=== PATIENT | male | born 1990 | race Caucasian/White ===

== ENCOUNTER 2022-06-04 11:34 | Inpatient (IN) | payer MEDICAID, OTHER ==
[~2022-06-04] VITALS: Ht 175.3 cm; Wt 64.4 kg
[~2022-06-04 11:34] MED LIST: NOCURR
[2022-06-04] MEDS ORDERED: MIDAZOLAM HCL 2 MG/2 ML VIAL ONE (11:48)
[2022-06-04] MEDS ORDERED: SODIUM CHLORIDE 0.9% 500 ML IV ONE (11:53)
[2022-06-04] MEDS ORDERED: MIDAZOLAM HCL 2 MG/2 ML VIAL IVP ONE (12:00)
[2022-06-04] MEDS ORDERED: PERTUSS(ACELL),DIPH,TET VAC/PF 0.5 ML SYRINGE IM. ONE (12:30)
[2022-06-04] MEDS ORDERED: LIDOCAINE 1% 10 ML VIAL SQ ONE (12:30)
[2022-06-04] MEDS ORDERED: LevETIRAcetam 1,000 MG in DEXTROSE 5%-WATER 100 ML IV ONE (12:30)
[2022-06-04] MEDS ORDERED: PROPOFOL 1000 MG/ISO-OSM 100 ML ONE (12:36)
[2022-06-04 12:38] LABS: APPEARANCE,URINE CLEAR (CLEAR); BILIRUBIN,URINE NEGATIVE (NEGATIVE); GLUCOSE, URINE (UA) 70-100 mg/dL (NEGATIVE); KETONES,URINE TRACE mg/dL (NEGATIVE); LEUKOCYTE ESTERASE ,URINE NEGATIVE (NEGATIVE); NITRATE,URINE NEGATIVE (NEGATIVE); OCCULT BLOOD,URINE MODERATE (NEGATIVE); PROTEIN,URINE 30-70 mg/dL (NEGATIVE); UROBILINOGEN,URINE <=1.0 mg/dL (<=1.0)
[2022-06-04] MEDS: PROPOFOL 1000 MG/ISO-OSM 100 ML IV PRN ×3 (12:44→20:16)
[2022-06-04 12:46] LABS: HEMATOCRIT 48.4 % (41-53); HEMOGLOBIN 15.2 g/dL (13.5-17.5); MEAN CORPUSCULAR HEMOGLOBIN 30.4 pg (26.0-34.0); MEAN CORPUSCULAR HGB CONC 31.4 G/dL (31.0-37.0); MEAN CORPUSCULAR VOLUME 97 fL (80-100); PLATELET COUNT (AUTO) 253 K/uL (150-450); RED CELL DISTRIBUTION WIDTH 14.8 % (11.5-14.5)
[2022-06-04 12:50] LABS: ANION GAP 17 mmol/L (8-16); CALCIUM, TOTAL 7.4 mg/dL (8.8-10.5); CARBON DIOXIDE 15 mmol/L (22-29); CHLORIDE 108 mmol/L (98-107); CREATININE 1.09 mg/dL (0.60-1.30); GLOMERULAR FILTR. RATE CALC > 60 mL/min (>60); GLUCOSE,RANDOM 119 mg/dL (70-110); POTASSIUM 4.9 mmol/L (3.5-5.1); SODIUM SERUM 140 mmol/L (136-145); UREA NITROGEN, BLOOD 11 mg/dL (7-18)
[2022-06-04 12:50] LABS: AMPHET/METH SCREEN,URINE NEGATIVE (NEGATIVE); BARBITURATE SCREEN, URINE NEGATIVE (NEGATIVE); BENZODIAZEPINES SCREEN,URINE POSITIVE (NEGATIVE); CANNABINOID SCREEN,URINE POSITIVE (NEGATIVE); COCAINE SCREEN,URINE NEGATIVE (NEGATIVE); METHADONE SCREEN, URINE NEGATIVE (NEGATIVE); OPIATE SCREEN,URINE NEGATIVE (NEGATIVE); PHENCYCLIDINE SCREEN,URINE NEGATIVE (NEGATIVE)
[2022-06-04] MEDS ORDERED: LORazepam 2 MG/ML VIAL ONE (12:51)
[2022-06-04 12:54] LABS: PROTHROMBIN TIME 11.1 SEC (9.4-11.6)
[2022-06-04 13:00] LABS: AMMONIA 21 umol/L (11-32)
[2022-06-04] MEDS ORDERED: LORazepam 2 MG/ML VIAL IVP ONE (13:00)
[2022-06-04 13:02] LABS: ABG BASE EXCESS -14.7 mmol/L (-2.0-3.0); ABG CARBOXYHEMOGLOBIN 0.3 % (0.0-1.5); ABG HCO3 13.8 mmol/L (22.0-26.0); ABG METHEMOGLOBIN 0.6 % (0.0-1.5); ABG OXYGEN SATURATION 99.7 % (95.0-98.0); ABG OXYHEMOGLOBIN 98.8 % (94.0-100.0); ABG PCO2 46 mmHg (35-45); ABG TOTAL HEMOGLOBIN 16.3 G/dL (12.0-18.0); PO2, ARTERIAL BG 520.3 mmHg (92.0-100.0); SOURCE, BLOOD GAS ARTERIAL
[2022-06-04 13:03] LABS: ABG A-A DIFF O2 147.9 mmHg (10-20.0); ABG PH 7.124 (7.350-7.450); O2 DEVICE,BLOOD GAS VENTILATOR (ROOM AIR); SITE, BLOOD GAS ARTERIAL LINE; VT, ABG 450 ml
[2022-06-04 13:03] LABS: LACTIC ACID 4.2 mmol/L (0.4-2.0)
[2022-06-04 13:04] LABS: PEEP,BG 5 cm H2O; SPONTANEOUS VT, BG 460 ml
[2022-06-04 13:12] LABS: ACETAMINOPHEN 8 mcg/mL (10-30)
[2022-06-04 13:20] LABS: BAND NEUTROPHILS % (MANUAL) 10 % (0-5); LYMPHOCYTES % (MANUAL) 3 % (22-44); MONOCYTES % (MANUAL) 4 % (2-9); SEGMENTED NEUTROPHILS % 83 % (40-70)
[2022-06-04 13:22] LABS: BACTERIA,URINE Rare /HPF (None Seen); RBC,URINE 0-2 /HPF (0-2); WBC,URINE 0-2 /HPF (0-5)
[2022-06-04 13:22] LABS: ALANINE AMINOTRANSFERASE 20 U/L (12-78); ALBUMIN 4.1 g/dL (3.4-5.0); ALKALINE PHOSPHATASE 108 U/L (46-116); ASPARTATE AMINOTRANSFERASE 24 U/L (15-37); BILIRUBIN,TOTAL 0.2 mg/dL (0.1-1.0); CREATINE KINASE, TOTAL ONLY 309 U/L (39-308); TOTAL PROTEIN, SERUM 8.3 g/dL (6.4-8.2)
[2022-06-04 13:25] LABS: SALICYLATE 0.3 mg/dL (2.8-20.0)
[2022-06-04] MEDS ORDERED: PIPERACILLIN/TAZO 3.375 GM/D5W 50 ML IV ONE (13:30)
[2022-06-04] MEDS ORDERED: SODIUM CHLORIDE 0.9% 2,000 ML IV ONE (13:30)
[2022-06-04] MEDS: MIDAZOLAM HCL 100 MG in SODIUM CHLORIDE 0.9% 180 ML IV PRN (13:31)
[2022-06-04] MEDS ORDERED: DEXTROSE 5% IV ONE (13:45)
[2022-06-04] MEDS ORDERED: WATER IV ONE (13:45)
[2022-06-04] MEDS ORDERED: LEVETIRACETAM IV ONE (13:45)
[2022-06-04] MEDS ORDERED: LevETIRAcetam 3,000 MG in DEXTROSE 5%-WATER 250 ML IV ONE (13:45)
[2022-06-04 15:46] LABS: COVID AG,FIA SOURCE NASAL SWAB
[2022-06-04] MEDS ORDERED: ZOLPIDEM TARTRATE 5 MG TABLET PO PRN (19:45)
[2022-06-04] MEDS ORDERED: ACETAMINOPHEN 325 MG TABLET PO PRN (19:45)
[2022-06-04] MEDS ORDERED: ONDANSETRON HCL 4 MG/2 ML VIAL IVP PRN (19:45)
[2022-06-04] MEDS ORDERED: MORPHINE SULFATE 2 MG/ML SYRINGE IVP PRN (19:45)
[2022-06-04] MEDS ORDERED: BISACODYL 10 MG RECTAL RECTAL SUPPOSITORY PR PRN (19:45)
[2022-06-04] MEDS ORDERED: IPRATROPIUM BROMIDE 0.5 MG/2.5 ML NEB SOLUTION NEB PRN (19:45)
[2022-06-04] MEDS ORDERED: ALBUTEROL SULFATE 2.5 MG/0.5 ML NEB SOLUTION NEB PRN (19:45)
[2022-06-04] MEDS ORDERED: MAGNESIUM HYDROXIDE SUSPENSION 30 ML UDCUP PO PRN (19:45)
[2022-06-04 20:00] VITALS: BP 100/66
[2022-06-04 20:28] LABS: BASOPHILS % (AUTO) 0.5 % (0.0-2.0); EOSINOPHILS % (AUTO) 0.2 % (1.0-6.0); HEMATOCRIT 45.7 % (41-53); HEMOGLOBIN 14.7 g/dL (13.5-17.5); LYMPHOCYTES # (AUTO) 1.7 K/uL (1.0-4.8); LYMPHOCYTES % (AUTO) 7.6 % (22.0-44.0); MEAN CORPUSCULAR HEMOGLOBIN 30.4 pg (26.0-34.0); MEAN CORPUSCULAR HGB CONC 32.1 G/dL (31.0-37.0); MEAN CORPUSCULAR VOLUME 95 fL (80-100); MONOCYTES # (AUTO) 2.1 K/uL (0.1-1.0); MONOCYTES % (AUTO) 9.6 % (2.0-9.0); NEUTROPHILS # (AUTO) 18.2 K/uL (1.8-7.7); NEUTROPHILS % (AUTO) 82.1 % (40.0-70.0); PLATELET COUNT (AUTO) 220 K/uL (150-450); RED BLOOD CELL COUNT(AUTO) 4.83 MIL/uL (4.50-5.90); RED CELL DISTRIBUTION WIDTH 14.4 % (11.5-14.5)
[2022-06-04 20:37] LABS: CALCIUM, TOTAL 8.9 mg/dL (8.8-10.5); CREATININE 1.6 mg/dL (0.60-1.30); POTASSIUM 4.6 mmol/L (3.5-5.1)
[2022-06-04] MEDS: DEXTROSE 5%-0.45% SODIUM CHL 1,000 ML IV SCH (20:46)
[2022-06-04 20:53] LABS: BILIRUBIN,TOTAL 0.8 mg/dL (0.1-1.0); TOTAL PROTEIN, SERUM 7.6 g/dL (6.4-8.2)
[2022-06-04] MEDS: DOCUSATE SODIUM 100 MG CAPSULE PO SCH (21:00)
[2022-06-04] MEDS: LevETIRAcetam 1,000 MG in DEXTROSE 5%-WATER 100 ML IV SCH (21:20)
[2022-06-04] MEDS ORDERED: SODIUM CHLORIDE 0.9% 250 ML IV ONE (21:21)
[2022-06-04 21:40] LABS: ABG BASE EXCESS -11.8 mmol/L (-2.0-3.0); ABG CARBOXYHEMOGLOBIN 0.4 % (0.0-1.5); ABG HCO3 16.7 mmol/L (22.0-26.0); ABG METHEMOGLOBIN 0.3 % (0.0-1.5); ABG OXYGEN CONTENT 19.4 mL/dL (15.0-23.0); ABG OXYGEN SATURATION 99.2 % (95.0-98.0); ABG OXYHEMOGLOBIN 98.5 % (94.0-100.0); ABG PH 7.366 (7.350-7.450); ABG TOTAL HEMOGLOBIN 13.7 G/dL (12.0-18.0); PO2, ARTERIAL BG 193.3 mmHg (92.0-100.0)
[2022-06-04 21:41] LABS: ABG PCO2 24 mmHg (35-45); O2 DEVICE,BLOOD GAS VENTILATOR (ROOM AIR); SITE, BLOOD GAS LFT RADIAL; SOURCE, BLOOD GAS ARTERIAL LINE
[2022-06-04 21:42] LABS: PEEP,BG 5 cm H2O; SPONTANEOUS VT, BG 464 ml; VT, ABG 450 ml
[2022-06-04] MEDS: PIPERACILLIN/TAZO 3.375 GM/D5W 50 ML IV SCH (21:49)
[2022-06-05] VITALS: BP 156/102
[2022-06-05] MEDS: HEPARIN SODIUM,PORCINE 5,000 UNITS/ML VIAL SQ SCH ×3 (00:52→16:20)
[2022-06-05] MEDS: PIPERACILLIN/TAZO 3.375 GM/D5W 50 ML IV SCH ×2 (00:52→08:02)
[2022-06-05] MEDS: PROPOFOL 1000 MG/ISO-OSM 100 ML IV PRN ×4 (01:51→19:27)
[2022-06-05] MEDS: FentaNYL CIT 1000MCG/0.9% NACL 100 ML IV PRN ×2 (02:06→14:19)
[2022-06-05 04:00] VITALS: BP 126/78
[2022-06-05 05:49] LABS: BASOPHILS % (AUTO) 0.3 % (0.0-2.0); EOSINOPHILS % (AUTO) 0.1 % (1.0-6.0); HEMATOCRIT 40.6 % (41-53); HEMOGLOBIN 13.5 g/dL (13.5-17.5); LYMPHOCYTES # (AUTO) 2.1 K/uL (1.0-4.8); LYMPHOCYTES % (AUTO) 12.4 % (22.0-44.0); MEAN CORPUSCULAR HEMOGLOBIN 31.3 pg (26.0-34.0); MEAN CORPUSCULAR HGB CONC 33.3 G/dL (31.0-37.0); MEAN CORPUSCULAR VOLUME 94 fL (80-100); MONOCYTES # (AUTO) 1.5 K/uL (0.1-1.0); NEUTROPHILS # (AUTO) 13.4 K/uL (1.8-7.7); NEUTROPHILS % (AUTO) 78.2 % (40.0-70.0); PLATELET COUNT (AUTO) 208 K/uL (150-450); RED BLOOD CELL COUNT(AUTO) 4.31 MIL/uL (4.50-5.90); RED CELL DISTRIBUTION WIDTH 14.3 % (11.5-14.5)
[2022-06-05 06:11] LABS: ALBUMIN 3.5 g/dL (3.4-5.0); BILIRUBIN,TOTAL 0.9 mg/dL (0.1-1.0); CALCIUM, TOTAL 8.2 mg/dL (8.8-10.5); CREATININE 2.48 mg/dL (0.60-1.30); POTASSIUM 3.8 mmol/L (3.5-5.1); TOTAL PROTEIN, SERUM 6.9 g/dL (6.4-8.2)
[2022-06-05] MEDS ORDERED: LIDOCAINE/PF 2% 5 ML VIAL IM ONE (06:29)
[2022-06-05] MEDS ORDERED: ROCURONIUM BROMIDE 10 MG/ML 5 ML VIAL IVP ONE (06:29)
[2022-06-05] MEDS ORDERED: ETOMIDATE 2 MG/ML 10 ML VIAL IVP ONE (06:29)
[2022-06-05] MEDS: MIDAZOLAM HCL 100 MG in SODIUM CHLORIDE 0.9% 180 ML IV PRN ×2 (06:59→19:56)
[2022-06-05 08:00] VITALS: BP 133/64
[2022-06-05] MEDS: LevETIRAcetam 1,000 MG in DEXTROSE 5%-WATER 100 ML IV SCH (08:02)
[2022-06-05] MEDS: PANTOPRAZOLE SODIUM 40 MG/VIAL IVP SCH (08:03)
[2022-06-05] MEDS: DOCUSATE SODIUM 100 MG CAPSULE PO SCH ×2 (08:03→22:37)
[2022-06-05] MEDS: DEXTROSE 5%-0.45% SODIUM CHL 1,000 ML IV SCH ×2 (09:17→18:24)
[2022-06-05 12:00] VITALS: BP 127/79
[2022-06-05] MEDS ORDERED: *CLINICAL-RX DOSING [ENTER DRUG IN COMMENTS] CLINICAL ONE (12:30)
[2022-06-05] MEDS: CefTRIAXone SODIUM 2 GM in DEXTROSE 5%-WATER 50 ML IV SCH (13:21)
[2022-06-05] MEDS ORDERED: VANCOMYCIN HCL 1.5 GM in DEXTROSE 5%-WATER 250 ML IV ONE (13:30)
[2022-06-05] MEDS ORDERED: SODIUM CHLORIDE IV ONE (14:15)
[2022-06-05] MEDS ORDERED: FOSPHENYTOIN SODIUM IV ONE (14:15)
[2022-06-05 16:00] VITALS: BP 106/61
[2022-06-05] MEDS: ACYCLOVIR 600 MG in DEXTROSE 5%-WATER 100 ML IV SCH (16:18)
[2022-06-05 17:19] LABS: ANION GAP 12 mmol/L (8-16); CALCIUM, TOTAL 7.7 mg/dL (8.8-10.5); CARBON DIOXIDE 18 mmol/L (22-29); CHLORIDE 109 mmol/L (98-107); CREATININE 3.16 mg/dL (0.60-1.30); GLOMERULAR FILTR. RATE CALC 23 mL/min (>60); GLUCOSE,RANDOM 106 mg/dL (70-110); PHOSPHORUS 3.3 mg/dL (2.5-4.9); POTASSIUM 3.3 mmol/L (3.5-5.1); SODIUM SERUM 139 mmol/L (136-145); UREA NITROGEN, BLOOD 18 mg/dL (7-18)
[2022-06-05 17:27] LABS: SALICYLATE 3.7 mg/dL (2.8-20.0)
[2022-06-05 17:30] LABS: ACETONE,BLOOD NEGATIVE (NEGATIVE)
[2022-06-05 17:31] LABS: ACETAMINOPHEN < 2 mcg/mL (10-30)
[2022-06-05 20:00] VITALS: BP 98/53
[2022-06-05] MEDS: LevETIRAcetam 2,000 MG in DEXTROSE 5%-WATER 250 ML IV SCH (22:19)
[2022-06-05] MEDS: POTASSIUM CHL 10 MEQ/WATER 50 ML IV SCH (22:36)
[2022-06-06] VITALS (7 sets, daily range): BP systolic 90–116; BP diastolic 52–63
[2022-06-06] MEDS: POTASSIUM CHL 10 MEQ/WATER 50 ML IV SCH (00:12)
[2022-06-06] MEDS: FentaNYL CIT 1000MCG/0.9% NACL 100 ML IV PRN ×2 (00:32→14:00)
[2022-06-06] MEDS: HEPARIN SODIUM,PORCINE 5,000 UNITS/ML VIAL SQ SCH ×3 (00:33→15:07)
[2022-06-06] MEDS: CefTRIAXone SODIUM 2 GM in DEXTROSE 5%-WATER 50 ML IV SCH ×2 (00:34→12:32)
[2022-06-06] MEDS: PROPOFOL 1000 MG/ISO-OSM 100 ML IV PRN ×3 (03:17→18:49)
[2022-06-06] MEDS: ACYCLOVIR 600 MG in DEXTROSE 5%-WATER 100 ML IV SCH ×2 (03:18→15:09)
[2022-06-06 06:21] LABS: BASOPHILS % (AUTO) 0.8 % (0.0-2.0); EOSINOPHILS % (AUTO) 2.3 % (1.0-6.0); HEMATOCRIT 40.4 % (41-53); LYMPHOCYTES # (AUTO) 2.1 K/uL (1.0-4.8); LYMPHOCYTES % (AUTO) 23.4 % (22.0-44.0); MEAN CORPUSCULAR HEMOGLOBIN 31.6 pg (26.0-34.0); MEAN CORPUSCULAR HGB CONC 32.2 G/dL (31.0-37.0); MEAN CORPUSCULAR VOLUME 98 fL (80-100); MONOCYTES # (AUTO) 1.1 K/uL (0.1-1.0); MONOCYTES % (AUTO) 12.6 % (2.0-9.0); NEUTROPHILS # (AUTO) 5.4 K/uL (1.8-7.7); NEUTROPHILS % (AUTO) 60.9 % (40.0-70.0); PLATELET COUNT (AUTO) 180 K/uL (150-450); RED BLOOD CELL COUNT(AUTO) 4.11 MIL/uL (4.50-5.90); RED CELL DISTRIBUTION WIDTH 15.1 % (11.5-14.5)
[2022-06-06] MEDS: DEXTROSE 5%-0.45% SODIUM CHL 1,000 ML IV SCH ×2 (06:25→18:48)
[2022-06-06 06:29] LABS: CREATININE 3.64 mg/dL (0.60-1.30); POTASSIUM 4.3 mmol/L (3.5-5.1)
[2022-06-06 06:39] LABS: BILIRUBIN,TOTAL 0.3 mg/dL (0.1-1.0); TOTAL PROTEIN, SERUM 6.2 g/dL (6.4-8.2)
[2022-06-06 06:50] LABS: ALBUMIN 2.9 g/dL (3.4-5.0)
[2022-06-06] MEDS ORDERED: VANCOMYCIN HCL 1 GM/D5% WATER 200 ML IV PRN (07:15)
[2022-06-06 07:31] LABS: CREATININE,URINE RANDOM 49.3 mg/dL (30.0-125.0)
[2022-06-06] MEDS ORDERED: VANCOMYCIN 1GM/WATER(PEG/NADA) 200 ML IV SCH (08:00)
[2022-06-06] MEDS: LevETIRAcetam 2,000 MG in DEXTROSE 5%-WATER 250 ML IV SCH ×2 (08:14→20:52)
[2022-06-06] MEDS: PANTOPRAZOLE SODIUM 40 MG/VIAL IVP SCH (08:14)
[2022-06-06] MEDS: DOCUSATE SODIUM 100 MG CAPSULE PO SCH ×2 (08:14→20:52)
[2022-06-06] MEDS: MIDAZOLAM HCL 100 MG in SODIUM CHLORIDE 0.9% 180 ML IV PRN (08:15)
[2022-06-06] MEDS ORDERED: DEXMEDETOMIDINE HCL 400 MCG in SODIUM CHLORIDE 0.9% 96 ML IV PRN (13:45)
[2022-06-06 15:00] LABS: LACTIC ACID 0.7 mmol/L (0.4-2.0)
[2022-06-06 15:40] LABS: GLUCOSE, CSF 59 mg/dL (50-80); TOTAL PROTEIN, CSF 39 mg/dL (15-45)
[2022-06-06 16:04] LABS: APPEARANCE,CSF CLEAR (CLEAR); APPEARANCE2,CSF CLEAR (CLEAR); COLOR,CSF COLORLESS (COLORLESS); COLOR2,CSF COLORLESS (COLORLESS); CSF 2ND TUBE NUMBER 4; CSF TOTAL VOLUME 8.5 mL; CSF TUBE NUMBER 1; LYMPHOCYTES1,CSF 100 %; LYMPHOCYTES2,CSF 100 %; MONOCYTES1,CSF 0 %; MONOCYTES2,CSF 0 %; NEUTROPHILS1,CSF 0 %; NEUTROPHILS2,CSF 0 %; WHITE BLOOD CELL1,CSF 0.6 CMM (0-5); WHITE BLOOD CELL2,CSF 0.6 CMM (0-5)
[2022-06-06 20:29] LABS: CALCIUM, TOTAL 7.7 mg/dL (8.8-10.5); CREATININE 3.24 mg/dL (0.60-1.30); POTASSIUM 3.5 mmol/L (3.5-5.1)
[2022-06-06] MEDS: SODIUM BICARBONATE 150 MEQ in DEXTROSE 5%-WATER 1,000 ML IV SCH (23:10)
[2022-06-07] VITALS (8 sets, daily range): BP systolic 113–132; BP diastolic 57–69
[2022-06-07] MEDS: HEPARIN SODIUM,PORCINE 5,000 UNITS/ML VIAL SQ SCH ×3 (00:53→15:15)
[2022-06-07] MEDS: PIPERACILLIN SODIUM/TAZOBACTAM 2.25 GM in DEXTROSE 5%-WATER 50 ML IV SCH ×4 (00:53→17:28)
[2022-06-07] MEDS: MIDAZOLAM HCL 100 MG in SODIUM CHLORIDE 0.9% 180 ML IV PRN ×2 (01:25→18:19)
[2022-06-07] MEDS: FentaNYL CIT 1000MCG/0.9% NACL 100 ML IV PRN ×2 (01:32→09:57)
[2022-06-07] MEDS: PROPOFOL 1000 MG/ISO-OSM 100 ML IV PRN ×4 (01:33→21:34)
[2022-06-07 05:32] LABS: BASOPHILS % (AUTO) 0.8 % (0.0-2.0); EOSINOPHILS % (AUTO) 3.1 % (1.0-6.0); HEMATOCRIT 35.2 % (41-53); HEMOGLOBIN 11.9 g/dL (13.5-17.5); LYMPHOCYTES # (AUTO) 1.8 K/uL (1.0-4.8); LYMPHOCYTES % (AUTO) 25.9 % (22.0-44.0); MEAN CORPUSCULAR HEMOGLOBIN 31.7 pg (26.0-34.0); MEAN CORPUSCULAR HGB CONC 33.8 G/dL (31.0-37.0); MEAN CORPUSCULAR VOLUME 94 fL (80-100); MONOCYTES # (AUTO) 0.8 K/uL (0.1-1.0); MONOCYTES % (AUTO) 12.3 % (2.0-9.0); NEUTROPHILS % (AUTO) 57.9 % (40.0-70.0); PLATELET COUNT (AUTO) 176 K/uL (150-450); RED BLOOD CELL COUNT(AUTO) 3.75 MIL/uL (4.50-5.90); RED CELL DISTRIBUTION WIDTH 14.5 % (11.5-14.5)
[2022-06-07 05:44] LABS: ALBUMIN 2.4 g/dL (3.4-5.0); BILIRUBIN,TOTAL 0.3 mg/dL (0.1-1.0); CALCIUM, TOTAL 6.9 mg/dL (8.8-10.5); CREATININE 2.95 mg/dL (0.60-1.30); POTASSIUM 3.2 mmol/L (3.5-5.1); TOTAL PROTEIN, SERUM 5.3 g/dL (6.4-8.2)
[2022-06-07 05:47] LABS: CALCIUM, TOTAL 6.8 mg/dL (8.8-10.5); CREATININE 2.92 mg/dL (0.60-1.30); MAGNESIUM 1.9 mg/dL (1.80-2.40); PHOSPHORUS 4.6 mg/dL (2.5-4.9); POTASSIUM 3.1 mmol/L (3.5-5.1)
[2022-06-07] MEDS: PANTOPRAZOLE SODIUM 40 MG/VIAL IVP SCH (07:52)
[2022-06-07] MEDS: DOCUSATE SODIUM 100 MG CAPSULE PO SCH (07:52)
[2022-06-07] MEDS: ETHYL ALCOHOL 62% ANTISEPTIC NASAL SANITIZER 0.6 ML AMPUL NASAL SCH ×2 (07:52→21:33)
[2022-06-07] MEDS: LevETIRAcetam 2,000 MG in DEXTROSE 5%-WATER 250 ML IV SCH ×2 (09:10→21:33)
[2022-06-07] MEDS ORDERED: POTASSIUM CHLORIDE 10% 40 MEQ/30 ML LIQUID UDCUP GT ONE (09:30)
[2022-06-07] MEDS ORDERED: DEXTROSE 50%-WATER 25 GM/50 ML SYRINGE IVP ONE (11:30)
[2022-06-07 13:46] LABS: GLUCOSE,POINT OF CARE 61 MG/DL (70-110)
[2022-06-07] MEDS: SODIUM BICARBONATE 150 MEQ in DEXTROSE 5%-WATER 1,000 ML IV SCH (15:04)
[2022-06-07] MEDS ORDERED: *CLINICAL-RX DOSING [ENTER DRUG IN COMMENTS] CLINICAL ONE (15:30)
[2022-06-07 15:51] LABS: GLUCOSE,POINT OF CARE 204 MG/DL (70-110)
[2022-06-07 15:51] LABS: GLUCOSE,POINT OF CARE 158 MG/DL (70-110)
[2022-06-07 15:51] LABS: GLUCOSE,POINT OF CARE 73 MG/DL (70-110)
[2022-06-07 17:20] LABS: CREATININE 3.01 mg/dL (0.60-1.30); POTASSIUM 3.7 mmol/L (3.5-5.1)
[2022-06-07 17:21] LABS: CALCIUM, TOTAL 7.7 mg/dL (8.8-10.5)
[2022-06-07] MEDS: SODIUM CHLORIDE IV SCH (17:28)
[2022-06-07] MEDS: FOSPHENYTOIN SODIUM IV SCH (17:28)
[2022-06-07] MEDS ORDERED: DEXTROSE 50%-WATER 25 GM/50 ML SYRINGE IVP PRN (17:30)
[2022-06-07 19:01] LABS: GLUCOSE,POINT OF CARE 145 MG/DL (70-110)
[2022-06-07 19:01] LABS: GLUCOSE,POINT OF CARE 68 MG/DL (70-110)
[2022-06-07 19:01] LABS: GLUCOSE,POINT OF CARE 133 MG/DL (70-110)
[2022-06-08] VITALS: BP 133/66
[2022-06-08] MEDS: PIPERACILLIN SODIUM/TAZOBACTAM 2.25 GM in DEXTROSE 5%-WATER 50 ML IV SCH ×4 (00:11→17:47)
[2022-06-08] MEDS: HEPARIN SODIUM,PORCINE 5,000 UNITS/ML VIAL SQ SCH ×3 (00:11→16:45)
[2022-06-08] MEDS: FentaNYL CIT 1000MCG/0.9% NACL 100 ML IV PRN ×3 (00:45→20:04)
[2022-06-08 02:26] LABS: GLUCOSE,POINT OF CARE 92 MG/DL (70-110)
[2022-06-08 02:26] LABS: GLUCOSE,POINT OF CARE 92 MG/DL (70-110)
[2022-06-08] MEDS: PROPOFOL 1000 MG/ISO-OSM 100 ML IV PRN ×4 (03:33→20:03)
[2022-06-08 04:00] VITALS: BP 141/70
[2022-06-08] MEDS: MIDAZOLAM HCL 100 MG in SODIUM CHLORIDE 0.9% 180 ML IV PRN ×2 (04:55→16:43)
[2022-06-08 06:16] LABS: BASOPHILS % (AUTO) 0.8 % (0.0-2.0); EOSINOPHILS % (AUTO) 2.9 % (1.0-6.0); HEMATOCRIT 35.9 % (41-53); HEMOGLOBIN 12.2 g/dL (13.5-17.5); LYMPHOCYTES # (AUTO) 1.7 K/uL (1.0-4.8); LYMPHOCYTES % (AUTO) 24.2 % (22.0-44.0); MEAN CORPUSCULAR HEMOGLOBIN 31.4 pg (26.0-34.0); MEAN CORPUSCULAR HGB CONC 33.9 G/dL (31.0-37.0); MEAN CORPUSCULAR VOLUME 93 fL (80-100); MONOCYTES # (AUTO) 0.9 K/uL (0.1-1.0); MONOCYTES % (AUTO) 12.6 % (2.0-9.0); NEUTROPHILS # (AUTO) 4.2 K/uL (1.8-7.7); NEUTROPHILS % (AUTO) 59.5 % (40.0-70.0); PLATELET COUNT (AUTO) 196 K/uL (150-450); RED BLOOD CELL COUNT(AUTO) 3.88 MIL/uL (4.50-5.90); RED CELL DISTRIBUTION WIDTH 14.7 % (11.5-14.5)
[2022-06-08 06:31] LABS: ALBUMIN 2.5 g/dL (3.4-5.0); BILIRUBIN,TOTAL 0.3 mg/dL (0.1-1.0); CALCIUM, TOTAL 7.7 mg/dL (8.8-10.5); CREATININE 2.84 mg/dL (0.60-1.30); POTASSIUM 3.2 mmol/L (3.5-5.1); TOTAL PROTEIN, SERUM 5.7 g/dL (6.4-8.2)
[2022-06-08] MEDS: FOSPHENYTOIN SODIUM IV SCH ×2 (06:33→17:47)
[2022-06-08] MEDS: SODIUM CHLORIDE IV SCH ×2 (06:33→17:47)
[2022-06-08 06:34] LABS: PROTHROMBIN TIME 10.5 SEC (9.4-11.6)
[2022-06-08 07:06] LABS: GLUCOSE,POINT OF CARE 85 MG/DL (70-110)
[2022-06-08 08:00] VITALS: BP 132/64
[2022-06-08] MEDS: SODIUM BICARBONATE 150 MEQ in DEXTROSE 5%-WATER 1,000 ML IV SCH (08:11)
[2022-06-08] MEDS: PANTOPRAZOLE SODIUM 40 MG/VIAL IVP SCH (08:12)
[2022-06-08] MEDS: ETHYL ALCOHOL 62% ANTISEPTIC NASAL SANITIZER 0.6 ML AMPUL NASAL SCH ×2 (08:12→21:44)
[2022-06-08] MEDS: DOCUSATE SODIUM 100 MG/10 ML LIQUID UDCUP GT SCH ×2 (08:13→21:00)
[2022-06-08] MEDS: LevETIRAcetam 2,000 MG in DEXTROSE 5%-WATER 250 ML IV SCH ×2 (08:13→21:44)
[2022-06-08 12:00] VITALS: BP 127/62
[2022-06-08] MEDS: POTASSIUM CHL 10 MEQ/WATER 50 ML IV SCH ×4 (13:36→16:45)
[2022-06-08] MEDS: DEXTROSE 5%-WATER 1,000 ML IV SCH (13:36)
[2022-06-08 14:01] LABS: GLUCOSE,POINT OF CARE 74 MG/DL (70-110)
[2022-06-08 14:36] LABS: GLUCOSE,POINT OF CARE 85 MG/DL (70-110)
[2022-06-08 16:00] VITALS: BP 126/71
[2022-06-08] MEDS ORDERED: DEXTROSE 5% IV SCH (17:00)
[2022-06-08] MEDS ORDERED: LACOSAMIDE IV SCH (17:00)
[2022-06-08] MEDS ORDERED: WATER IV SCH (17:00)
[2022-06-08 17:42] LABS: GLUCOSE,POINT OF CARE 94 MG/DL (70-110)
[2022-06-08 20:00] VITALS: BP 115/58
[2022-06-08] MEDS: VALPROATE SODIUM 1,000 MG in DEXTROSE 5%-WATER 100 ML IV SCH (20:06)
[2022-06-08] MEDS ORDERED: SODIUM CHLORIDE 0.9% 250 ML IV ONE (20:20)
[2022-06-09] VITALS: BP 116/52
[2022-06-09] MEDS: PIPERACILLIN SODIUM/TAZOBACTAM 2.25 GM in DEXTROSE 5%-WATER 50 ML IV SCH ×2 (00:24→06:01)
[2022-06-09] MEDS: HEPARIN SODIUM,PORCINE 5,000 UNITS/ML VIAL SQ SCH ×3 (00:24→17:35)
[2022-06-09] MEDS: MIDAZOLAM HCL 100 MG in SODIUM CHLORIDE 0.9% 180 ML IV PRN ×2 (02:54→14:24)
[2022-06-09] MEDS: PROPOFOL 1000 MG/ISO-OSM 100 ML IV PRN ×4 (03:47→23:40)
[2022-06-09 04:00] VITALS: BP 154/79
[2022-06-09 05:44] LABS: BASOPHILS % (AUTO) 1.4 % (0.0-2.0); EOSINOPHILS % (AUTO) 4.6 % (1.0-6.0); HEMATOCRIT 37.6 % (41-53); HEMOGLOBIN 12.6 g/dL (13.5-17.5); LYMPHOCYTES # (AUTO) 1.5 K/uL (1.0-4.8); LYMPHOCYTES % (AUTO) 24.7 % (22.0-44.0); MEAN CORPUSCULAR HGB CONC 33.6 G/dL (31.0-37.0); MEAN CORPUSCULAR VOLUME 92 fL (80-100); MONOCYTES # (AUTO) 0.8 K/uL (0.1-1.0); MONOCYTES % (AUTO) 13.2 % (2.0-9.0); NEUTROPHILS # (AUTO) 3.3 K/uL (1.8-7.7); NEUTROPHILS % (AUTO) 56.1 % (40.0-70.0); PLATELET COUNT (AUTO) 199 K/uL (150-450); RED BLOOD CELL COUNT(AUTO) 4.07 MIL/uL (4.50-5.90); RED CELL DISTRIBUTION WIDTH 14.8 % (11.5-14.5)
[2022-06-09 05:58] LABS: ALBUMIN 2.4 g/dL (3.4-5.0); BILIRUBIN,TOTAL 0.3 mg/dL (0.1-1.0); CALCIUM, TOTAL 8.4 mg/dL (8.8-10.5); CREATININE 2.09 mg/dL (0.60-1.30); POTASSIUM 3.7 mmol/L (3.5-5.1); TOTAL PROTEIN, SERUM 5.7 g/dL (6.4-8.2)
[2022-06-09] MEDS: LACOSAMIDE 100 MG in DEXTROSE 5%-WATER 100 ML IV SCH ×3 (06:02→18:49)
[2022-06-09] MEDS: VALPROATE SODIUM 1,000 MG in DEXTROSE 5%-WATER 100 ML IV SCH ×3 (06:02→20:49)
[2022-06-09] MEDS: FOSPHENYTOIN SODIUM IV SCH ×2 (06:06→17:35)
[2022-06-09] MEDS: SODIUM CHLORIDE IV SCH ×2 (06:06→17:35)
[2022-06-09 07:16] LABS: GLUCOSE,POINT OF CARE 83 MG/DL (70-110)
[2022-06-09 07:16] LABS: GLUCOSE,POINT OF CARE 73 MG/DL (70-110)
[2022-06-09] MEDS: FentaNYL CIT 1000MCG/0.9% NACL 100 ML IV PRN ×2 (07:51→18:49)
[2022-06-09 08:00] VITALS: BP 110/51
[2022-06-09] MEDS: LevETIRAcetam 2,000 MG in DEXTROSE 5%-WATER 250 ML IV SCH ×2 (08:51→21:56)
[2022-06-09] MEDS: DOCUSATE SODIUM 100 MG/10 ML LIQUID UDCUP GT SCH ×2 (08:52→20:02)
[2022-06-09] MEDS: DEXTROSE 5%-WATER 1,000 ML IV SCH (08:53)
[2022-06-09] MEDS: PANTOPRAZOLE SODIUM 40 MG/VIAL IVP SCH (08:53)
[2022-06-09] MEDS: ETHYL ALCOHOL 62% ANTISEPTIC NASAL SANITIZER 0.6 ML AMPUL NASAL SCH ×2 (08:53→21:56)
[2022-06-09] MEDS ORDERED: POTASSIUM CHL 10 MEQ/WATER 50 ML IV SCH (11:00)
[2022-06-09] MEDS ORDERED: POTASSIUM CHLORIDE 10 MEQ ER TABLET PO ONE (11:45)
[2022-06-09 12:00] VITALS: BP 147/74
[2022-06-09] MEDS ORDERED: PIPERACILLIN/TAZO 3.375 GM/D5W 50 ML IV SCH (12:00)
[2022-06-09 16:00] VITALS: BP 141/73
[2022-06-09 17:47] LABS: GLUCOSE,POINT OF CARE 89 MG/DL (70-110)
[2022-06-09 20:00] VITALS: BP 99/47
[2022-06-09 22:22] LABS: GLUCOSE,POINT OF CARE 89 MG/DL (70-110)
[2022-06-09 22:22] LABS: GLUCOSE,POINT OF CARE 84 MG/DL (70-110)
[2022-06-10] VITALS: BP 132/59
[2022-06-10] MEDS: HEPARIN SODIUM,PORCINE 5,000 UNITS/ML VIAL SQ SCH ×3 (00:24→15:23)
[2022-06-10] MEDS: MIDAZOLAM HCL 100 MG in SODIUM CHLORIDE 0.9% 180 ML IV PRN ×3 (00:46→23:00)
[2022-06-10 04:00] VITALS: BP 153/78
[2022-06-10] MEDS: PROPOFOL 1000 MG/ISO-OSM 100 ML IV PRN ×4 (04:23→18:46)
[2022-06-10 04:46] LABS: GLUCOSE,POINT OF CARE 100 MG/DL (70-110)
[2022-06-10] MEDS: FentaNYL CIT 1000MCG/0.9% NACL 100 ML IV PRN ×3 (04:49→23:32)
[2022-06-10] MEDS ORDERED: SODIUM CHLORIDE 0.9% 250 ML IV ONE (05:35)
[2022-06-10] MEDS: DEXTROSE 5%-WATER 1,000 ML IV SCH (05:39)
[2022-06-10 05:43] LABS: BASOPHILS % (AUTO) 0.4 % (0.0-2.0); EOSINOPHILS % (AUTO) 2.7 % (1.0-6.0); HEMATOCRIT 33.9 % (41-53); HEMOGLOBIN 11.3 g/dL (13.5-17.5); LYMPHOCYTES # (AUTO) 1.3 K/uL (1.0-4.8); LYMPHOCYTES % (AUTO) 18.2 % (22.0-44.0); MEAN CORPUSCULAR HEMOGLOBIN 31.2 pg (26.0-34.0); MEAN CORPUSCULAR HGB CONC 33.2 G/dL (31.0-37.0); MEAN CORPUSCULAR VOLUME 94 fL (80-100); MONOCYTES # (AUTO) 0.8 K/uL (0.1-1.0); NEUTROPHILS # (AUTO) 4.7 K/uL (1.8-7.7); NEUTROPHILS % (AUTO) 66.7 % (40.0-70.0); PLATELET COUNT (AUTO) 183 K/uL (150-450); RED BLOOD CELL COUNT(AUTO) 3.62 MIL/uL (4.50-5.90); RED CELL DISTRIBUTION WIDTH 14.4 % (11.5-14.5)
[2022-06-10] MEDS: SODIUM CHLORIDE IV SCH ×2 (06:01→18:26)
[2022-06-10] MEDS: FOSPHENYTOIN SODIUM IV SCH ×2 (06:01→18:26)
[2022-06-10] MEDS: LACOSAMIDE 100 MG in DEXTROSE 5%-WATER 100 ML IV SCH ×2 (06:28→18:28)
[2022-06-10] MEDS ORDERED: SODIUM CHLORIDE 0.9% 500 ML IV ONE (06:43)
[2022-06-10 06:56] LABS: GLUCOSE,POINT OF CARE 77 MG/DL (70-110)
[2022-06-10 08:00] VITALS: BP 154/75
[2022-06-10 08:00] LABS: CALCIUM, TOTAL 8.3 mg/dL (8.8-10.5); CREATININE 1.68 mg/dL (0.60-1.30)
[2022-06-10] MEDS: ETHYL ALCOHOL 62% ANTISEPTIC NASAL SANITIZER 0.6 ML AMPUL NASAL SCH ×2 (08:10→21:35)
[2022-06-10] MEDS: LevETIRAcetam 2,000 MG in DEXTROSE 5%-WATER 250 ML IV SCH ×2 (08:10→21:35)
[2022-06-10] MEDS: VALPROATE SODIUM 1,000 MG in DEXTROSE 5%-WATER 100 ML IV SCH ×3 (08:10→20:45)
[2022-06-10] MEDS: PANTOPRAZOLE SODIUM 40 MG/VIAL IVP SCH (08:11)
[2022-06-10] MEDS: DOCUSATE SODIUM 100 MG/10 ML LIQUID UDCUP GT SCH ×2 (08:11→21:00)
[2022-06-10 08:14] LABS: ALBUMIN 2.3 g/dL (3.4-5.0); BILIRUBIN,TOTAL 0.2 mg/dL (0.1-1.0); PHENYTOIN (DILANTIN) 7.5 mcg/mL (10.0-20.0); TOTAL PROTEIN, SERUM 5.8 g/dL (6.4-8.2)
[2022-06-10 09:21] LABS: ABG BASE EXCESS -1.5 mmol/L (-2.0-3.0); ABG CARBOXYHEMOGLOBIN 0.2 % (0.0-1.5); ABG HCO3 23.7 mmol/L (22.0-26.0); ABG METHEMOGLOBIN 0.3 % (0.0-1.5); ABG OXYGEN CONTENT 17.5 mL/dL (15.0-23.0); ABG OXYGEN SATURATION 98.8 % (95.0-98.0); ABG OXYHEMOGLOBIN 98.3 % (94.0-100.0); ABG PCO2 34 mmHg (35-45); ABG PH 7.438 (7.350-7.450); ABG TOTAL HEMOGLOBIN 12.5 G/dL (12.0-18.0); PO2, ARTERIAL BG 138.5 mmHg (92.0-100.0); SOURCE, BLOOD GAS ARTERIAL; TEMPERATURE, FAHRENHEIT, BG 98.4 FAHREN (96.0-98.6)
[2022-06-10 09:22] LABS: ABG A-A DIFF O2 35.2 mmHg (10-20.0); O2 DEVICE,BLOOD GAS VENTILATOR (ROOM AIR); PEEP,BG 5 cm H2O; SITE, BLOOD GAS ARTERIAL LINE; SPONTANEOUS VT, BG 448 ml; VT, ABG 450 ml
[2022-06-10] MEDS ORDERED: *CLINICAL-RX DOSING [ENTER DRUG IN COMMENTS] CLINICAL ONE (09:45)
[2022-06-10] MEDS ORDERED: ACYCLOVIR 600 MG in DEXTROSE 5%-WATER 100 ML IV SCH ×2 (10:00→18:00)
[2022-06-10 12:00] VITALS: BP 185/83
[2022-06-10] MEDS ORDERED: DiphenhydrAMINE HCL 50 MG/ML VIAL ONE (13:07)
[2022-06-10] MEDS ORDERED: DiphenhydrAMINE HCL 50 MG/ML VIAL IVP ONE (13:15)
[2022-06-10 16:00] VITALS: BP 156/70
[2022-06-10] MEDS: ACYCLOVIR IV SCH (18:26)
[2022-06-10] MEDS: DEXTROSE 5% IV SCH (18:26)
[2022-06-10] MEDS: WATER IV SCH (18:26)
[2022-06-10 19:36] LABS: GLUCOSE,POINT OF CARE 77 MG/DL (70-110)
[2022-06-10 19:36] LABS: GLUCOSE,POINT OF CARE 87 MG/DL (70-110)
[2022-06-10 20:00] VITALS: BP 127/60
[2022-06-10] MEDS: PHENobarbital SODIUM 65 MG/ML VIAL IVP SCH (21:35)
[2022-06-11] VITALS: BP 131/63
[2022-06-11] MEDS: HEPARIN SODIUM,PORCINE 5,000 UNITS/ML VIAL SQ SCH ×4 (00:09→23:52)
[2022-06-11 00:16] LABS: GLUCOSE,POINT OF CARE 95 MG/DL (70-110)
[2022-06-11] MEDS: PROPOFOL 1000 MG/ISO-OSM 100 ML IV PRN ×5 (00:23→20:36)
[2022-06-11] MEDS: DEXTROSE 5%-WATER 1,000 ML IV SCH ×2 (01:22→20:34)
[2022-06-11] MEDS: WATER IV SCH ×3 (02:28→17:04)
[2022-06-11] MEDS: DEXTROSE 5% IV SCH ×3 (02:28→17:04)
[2022-06-11] MEDS: ACYCLOVIR IV SCH ×3 (02:28→17:04)
[2022-06-11 04:00] VITALS: BP 130/61
[2022-06-11] MEDS: SODIUM CHLORIDE IV SCH ×2 (05:55→17:05)
[2022-06-11] MEDS: FOSPHENYTOIN SODIUM IV SCH ×2 (05:55→17:05)
[2022-06-11 06:11] LABS: GLUCOSE,POINT OF CARE 93 MG/DL (70-110)
[2022-06-11] MEDS: FentaNYL CIT 1000MCG/0.9% NACL 100 ML IV PRN ×4 (06:35→23:55)
[2022-06-11] MEDS: LACOSAMIDE 100 MG in DEXTROSE 5%-WATER 100 ML IV SCH ×2 (06:37→18:35)
[2022-06-11 06:48] LABS: MAGNESIUM 1.6 mg/dL (1.80-2.40); PHOSPHORUS 4.5 mg/dL (2.5-4.9)
[2022-06-11 06:49] LABS: ANION GAP 7 mmol/L (8-16); CALCIUM, TOTAL 7.9 mg/dL (8.8-10.5); CARBON DIOXIDE 26 mmol/L (22-29); CHLORIDE 110 mmol/L (98-107); CREATININE 1.29 mg/dL (0.60-1.30); GLOMERULAR FILTR. RATE CALC > 60 mL/min (>60); GLUCOSE,RANDOM 86 mg/dL (70-110); PHENOBARBITAL 2 mcg/mL (15-40); POTASSIUM 3.4 mmol/L (3.5-5.1); SODIUM SERUM 143 mmol/L (136-145); UREA NITROGEN, BLOOD 15 mg/dL (7-18); VALPROIC ACID 15 mcg/mL (50-100)
[2022-06-11] MEDS: DOCUSATE SODIUM 100 MG/10 ML LIQUID UDCUP GT SCH ×2 (07:58→20:37)
[2022-06-11 08:00] VITALS: BP 121/53
[2022-06-11] MEDS: PANTOPRAZOLE SODIUM 40 MG/VIAL IVP SCH (08:06)
[2022-06-11] MEDS: ETHYL ALCOHOL 62% ANTISEPTIC NASAL SANITIZER 0.6 ML AMPUL NASAL SCH ×2 (08:06→20:34)
[2022-06-11] MEDS: VALPROATE SODIUM 1,000 MG in DEXTROSE 5%-WATER 100 ML IV SCH ×2 (08:06→20:30)
[2022-06-11 08:54] LABS: BASOPHILS % (AUTO) 1.2 % (0.0-2.0); EOSINOPHILS % (AUTO) 4.8 % (1.0-6.0); HEMATOCRIT 35.3 % (41-53); HEMOGLOBIN 11.7 g/dL (13.5-17.5); LYMPHOCYTES # (AUTO) 1.4 K/uL (1.0-4.8); LYMPHOCYTES % (AUTO) 25.2 % (22.0-44.0); MEAN CORPUSCULAR HEMOGLOBIN 30.9 pg (26.0-34.0); MEAN CORPUSCULAR HGB CONC 33.2 G/dL (31.0-37.0); MEAN CORPUSCULAR VOLUME 93 fL (80-100); MONOCYTES # (AUTO) 0.8 K/uL (0.1-1.0); MONOCYTES % (AUTO) 13.9 % (2.0-9.0); NEUTROPHILS % (AUTO) 54.9 % (40.0-70.0); PLATELET COUNT (AUTO) 206 K/uL (150-450); RED BLOOD CELL COUNT(AUTO) 3.79 MIL/uL (4.50-5.90); RED CELL DISTRIBUTION WIDTH 14.4 % (11.5-14.5)
[2022-06-11] MEDS: LevETIRAcetam 2,000 MG in DEXTROSE 5%-WATER 250 ML IV SCH ×2 (08:59→20:31)
[2022-06-11] MEDS: PHENobarbital SODIUM 65 MG/ML VIAL IVP SCH ×3 (08:59→20:34)
[2022-06-11] MEDS: MIDAZOLAM HCL 100 MG in SODIUM CHLORIDE 0.9% 180 ML IV PRN ×2 (09:00→18:16)
[2022-06-11] MEDS ORDERED: POTASSIUM CHLORIDE 10% 40 MEQ/30 ML LIQUID UDCUP GT ONE (09:00)
[2022-06-11] MEDS ORDERED: MAGNESIUM SULFATE 3 GM in DEXTROSE 5%-WATER 100 ML IV ONE (09:00)
[2022-06-11 09:11] LABS: ALANINE AMINOTRANSFERASE 87 U/L (12-78); ALBUMIN 2.3 g/dL (3.4-5.0); ALKALINE PHOSPHATASE 67 U/L (46-116); ASPARTATE AMINOTRANSFERASE 90 U/L (15-37); BILIRUBIN,TOTAL 0.2 mg/dL (0.1-1.0); TOTAL PROTEIN, SERUM 5.7 g/dL (6.4-8.2)
[2022-06-11 11:56] LABS: GLUCOSE,POINT OF CARE 102 MG/DL (70-110)
[2022-06-11 12:00] VITALS: BP 160/67
[2022-06-11] MEDS ORDERED: LABETALOL HCL 5 MG/ML 20 ML VIAL IVP ONE (12:48)
[2022-06-11] MEDS: LABETALOL HCL 5 MG/ML 20 ML VIAL IVP PRN (12:50)
[2022-06-11] MEDS ORDERED: METOPROLOL TARTRATE 25 MG TABLET PO ONE (13:00)
[2022-06-11 16:00] VITALS: BP 117/53
[2022-06-11 20:00] VITALS: BP 106/48
[2022-06-11] MEDS: METOPROLOL TARTRATE 25 MG TABLET PO SCH (20:37)
[2022-06-12] VITALS: BP 121/52
[2022-06-12 00:31] LABS: GLUCOSE,POINT OF CARE 79 MG/DL (70-110)
[2022-06-12 01:26] LABS: GLUCOSE,POINT OF CARE 82 MG/DL (70-110)
[2022-06-12] MEDS: ACYCLOVIR IV SCH ×3 (02:31→17:32)
[2022-06-12] MEDS: WATER IV SCH ×3 (02:31→17:32)
[2022-06-12] MEDS: DEXTROSE 5% IV SCH ×3 (02:31→17:32)
[2022-06-12] MEDS: PROPOFOL 1000 MG/ISO-OSM 100 ML IV PRN ×5 (02:32→21:27)
[2022-06-12] MEDS ORDERED: SODIUM CHLORIDE 0.9% 250 ML IV ONE ×2 (03:56→04:00)
[2022-06-12 04:00] VITALS: BP 138/60
[2022-06-12] MEDS: FOSPHENYTOIN SODIUM IV SCH ×3 (05:16→20:51)
[2022-06-12] MEDS: SODIUM CHLORIDE IV SCH ×3 (05:16→20:51)
[2022-06-12 05:26] LABS: GLUCOSE,POINT OF CARE 91 MG/DL (70-110)
[2022-06-12 06:09] LABS: BASOPHILS % (AUTO) 0.7 % (0.0-2.0); EOSINOPHILS % (AUTO) 4.2 % (1.0-6.0); HEMATOCRIT 37.2 % (41-53); HEMOGLOBIN 12.4 g/dL (13.5-17.5); LYMPHOCYTES # (AUTO) 1.5 K/uL (1.0-4.8); LYMPHOCYTES % (AUTO) 23.4 % (22.0-44.0); MEAN CORPUSCULAR HEMOGLOBIN 31.1 pg (26.0-34.0); MEAN CORPUSCULAR HGB CONC 33.3 G/dL (31.0-37.0); MEAN CORPUSCULAR VOLUME 93 fL (80-100); MONOCYTES # (AUTO) 0.9 K/uL (0.1-1.0); MONOCYTES % (AUTO) 13.1 % (2.0-9.0); NEUTROPHILS # (AUTO) 3.8 K/uL (1.8-7.7); NEUTROPHILS % (AUTO) 58.6 % (40.0-70.0); PLATELET COUNT (AUTO) 225 K/uL (150-450); RED BLOOD CELL COUNT(AUTO) 3.99 MIL/uL (4.50-5.90); RED CELL DISTRIBUTION WIDTH 14.2 % (11.5-14.5)
[2022-06-12 06:20] LABS: ALANINE AMINOTRANSFERASE 92 U/L (12-78); ALBUMIN 2.5 g/dL (3.4-5.0); ALKALINE PHOSPHATASE 74 U/L (46-116); ANION GAP 3 mmol/L (8-16); ASPARTATE AMINOTRANSFERASE 75 U/L (15-37); BILIRUBIN,TOTAL 0.2 mg/dL (0.1-1.0); CALCIUM, TOTAL 8.6 mg/dL (8.8-10.5); CARBON DIOXIDE 26 mmol/L (22-29); CHLORIDE 108 mmol/L (98-107); CREATININE 1.36 mg/dL (0.60-1.30); GLOMERULAR FILTR. RATE CALC > 60 mL/min (>60); GLUCOSE,RANDOM 98 mg/dL (70-110); PHENYTOIN (DILANTIN) 4.2 mcg/mL (10.0-20.0); PHOSPHORUS 5.4 mg/dL (2.5-4.9); POTASSIUM 4.2 mmol/L (3.5-5.1); SODIUM SERUM 137 mmol/L (136-145); TOTAL PROTEIN, SERUM 6.3 g/dL (6.4-8.2); UREA NITROGEN, BLOOD 20 mg/dL (7-18)
[2022-06-12] MEDS: LACOSAMIDE 100 MG in DEXTROSE 5%-WATER 100 ML IV SCH ×2 (06:21→18:29)
[2022-06-12] MEDS: MIDAZOLAM HCL 100 MG in SODIUM CHLORIDE 0.9% 180 ML IV PRN ×2 (06:50→16:00)
[2022-06-12] MEDS: VALPROATE SODIUM 1,000 MG in DEXTROSE 5%-WATER 100 ML IV SCH ×2 (07:39→20:11)
[2022-06-12] MEDS: DOCUSATE SODIUM 100 MG/10 ML LIQUID UDCUP GT SCH ×2 (07:45→20:09)
[2022-06-12] MEDS: METOPROLOL TARTRATE 25 MG TABLET PO SCH ×2 (07:45→20:17)
[2022-06-12] MEDS: FentaNYL CIT 1000MCG/0.9% NACL 100 ML IV PRN ×3 (07:55→18:52)
[2022-06-12 08:00] VITALS: BP 122/51
[2022-06-12] MEDS: PANTOPRAZOLE SODIUM 40 MG/VIAL IVP SCH (08:23)
[2022-06-12] MEDS: PHENobarbital SODIUM 65 MG/ML VIAL IVP SCH ×3 (08:23→20:10)
[2022-06-12] MEDS: ETHYL ALCOHOL 62% ANTISEPTIC NASAL SANITIZER 0.6 ML AMPUL NASAL SCH ×2 (08:23→20:11)
[2022-06-12] MEDS: HEPARIN SODIUM,PORCINE 5,000 UNITS/ML VIAL SQ SCH ×2 (08:23→17:32)
[2022-06-12] MEDS: LevETIRAcetam 2,000 MG in DEXTROSE 5%-WATER 250 ML IV SCH ×2 (08:24→20:51)
[2022-06-12 12:00] VITALS: BP 107/44
[2022-06-12 16:12] LABS: GLUCOSE,POINT OF CARE 92 MG/DL (70-110)
[2022-06-12 17:30] VITALS: BP 134/66
[2022-06-12] MEDS: DEXTROSE 5%-WATER 1,000 ML IV SCH (17:33)
[2022-06-12 20:00] VITALS: BP 127/65
[2022-06-12 20:46] LABS: GLUCOSE,POINT OF CARE 77 MG/DL (70-110)
[2022-06-13] VITALS: BP 122/53
[2022-06-13] MEDS: HEPARIN SODIUM,PORCINE 5,000 UNITS/ML VIAL SQ SCH ×3 (00:05→17:54)
[2022-06-13] MEDS: FentaNYL CIT 1000MCG/0.9% NACL 100 ML IV PRN ×2 (00:07→07:54)
[2022-06-13 01:46] LABS: GLUCOSE,POINT OF CARE 80 MG/DL (70-110)
[2022-06-13] MEDS: PROPOFOL 1000 MG/ISO-OSM 100 ML IV PRN ×4 (02:33→22:45)
[2022-06-13] MEDS: WATER IV SCH ×3 (02:54→18:25)
[2022-06-13] MEDS: MIDAZOLAM HCL 100 MG in SODIUM CHLORIDE 0.9% 180 ML IV PRN ×3 (02:54→15:42)
[2022-06-13] MEDS: ACYCLOVIR IV SCH ×3 (02:54→18:25)
[2022-06-13] MEDS: DEXTROSE 5% IV SCH ×3 (02:54→18:25)
[2022-06-13 04:00] VITALS: BP 104/48
[2022-06-13 05:16] LABS: GLUCOSE,POINT OF CARE 78 MG/DL (70-110)
[2022-06-13 05:23] LABS: BASOPHILS % (AUTO) 1.2 % (0.0-2.0); EOSINOPHILS % (AUTO) 5.1 % (1.0-6.0); HEMATOCRIT 33.1 % (41-53); HEMOGLOBIN 11.4 g/dL (13.5-17.5); LYMPHOCYTES # (AUTO) 1.5 K/uL (1.0-4.8); LYMPHOCYTES % (AUTO) 30.5 % (22.0-44.0); MEAN CORPUSCULAR HEMOGLOBIN 32.7 pg (26.0-34.0); MEAN CORPUSCULAR HGB CONC 34.5 G/dL (31.0-37.0); MEAN CORPUSCULAR VOLUME 95 fL (80-100); MONOCYTES # (AUTO) 0.6 K/uL (0.1-1.0); MONOCYTES % (AUTO) 12.5 % (2.0-9.0); NEUTROPHILS # (AUTO) 2.5 K/uL (1.8-7.7); NEUTROPHILS % (AUTO) 50.7 % (40.0-70.0); PLATELET COUNT (AUTO) 220 K/uL (150-450); RED BLOOD CELL COUNT(AUTO) 3.49 MIL/uL (4.50-5.90); RED CELL DISTRIBUTION WIDTH 14.7 % (11.5-14.5)
[2022-06-13] MEDS: FOSPHENYTOIN SODIUM IV SCH ×3 (05:47→21:48)
[2022-06-13] MEDS: SODIUM CHLORIDE IV SCH ×3 (05:47→21:48)
[2022-06-13] MEDS ORDERED: SODIUM CHLORIDE 0.9% 500 ML IV ONE (06:08)
[2022-06-13] MEDS: LACOSAMIDE 100 MG in DEXTROSE 5%-WATER 100 ML IV SCH ×2 (06:11→18:25)
[2022-06-13] MEDS: VALPROATE SODIUM 1,000 MG in DEXTROSE 5%-WATER 100 ML IV SCH ×2 (07:54→20:36)
[2022-06-13 08:00] VITALS: BP 114/52
[2022-06-13] MEDS: DOCUSATE SODIUM 100 MG/10 ML LIQUID UDCUP GT SCH ×2 (08:00→21:00)
[2022-06-13] MEDS: METOPROLOL TARTRATE 25 MG TABLET PO SCH ×2 (08:01→21:00)
[2022-06-13] MEDS: LevETIRAcetam 2,000 MG in DEXTROSE 5%-WATER 250 ML IV SCH ×2 (08:10→22:02)
[2022-06-13] MEDS: PANTOPRAZOLE SODIUM 40 MG/VIAL IVP SCH (08:10)
[2022-06-13] MEDS: PHENobarbital SODIUM 65 MG/ML VIAL IVP SCH ×3 (08:11→22:17)
[2022-06-13] MEDS: ETHYL ALCOHOL 62% ANTISEPTIC NASAL SANITIZER 0.6 ML AMPUL NASAL SCH ×2 (08:11→22:17)
[2022-06-13 09:00] LABS: ALANINE AMINOTRANSFERASE 166 U/L (12-78); ALBUMIN 2.4 g/dL (3.4-5.0); ALKALINE PHOSPHATASE 68 U/L (46-116); ANION GAP 8 mmol/L (8-16); ASPARTATE AMINOTRANSFERASE 136 U/L (15-37); BILIRUBIN,TOTAL 0.2 mg/dL (0.1-1.0); CALCIUM, TOTAL 8.3 mg/dL (8.8-10.5); CARBON DIOXIDE 25 mmol/L (22-29); CHLORIDE 106 mmol/L (98-107); GLOMERULAR FILTR. RATE CALC > 60 mL/min (>60); GLUCOSE,RANDOM 112 mg/dL (70-110); POTASSIUM 4.3 mmol/L (3.5-5.1); SODIUM SERUM 139 mmol/L (136-145); TOTAL PROTEIN, SERUM 6.1 g/dL (6.4-8.2); UREA NITROGEN, BLOOD 23 mg/dL (7-18)
[2022-06-13 12:00] VITALS: BP 138/54
[2022-06-13] MEDS: DEXTROSE 5%-WATER 1,000 ML IV SCH (14:01)
[2022-06-13 16:00] VITALS: BP 118/55
[2022-06-13 17:26] LABS: GLUCOSE,POINT OF CARE 87 MG/DL (70-110)
[2022-06-13 17:41] LABS: CREATINE KINASE, TOTAL ONLY 297 U/L (39-308)
[2022-06-13 19:16] LABS: GLUCOSE,POINT OF CARE 109 MG/DL (70-110)
[2022-06-13 20:00] VITALS: BP 111/51
[2022-06-14] VITALS: BP 129/59
[2022-06-14] MEDS: HEPARIN SODIUM,PORCINE 5,000 UNITS/ML VIAL SQ SCH ×2 (01:36→08:31)
[2022-06-14 01:41] LABS: GLUCOSE,POINT OF CARE 93 MG/DL (70-110)
[2022-06-14 04:00] VITALS: BP 112/54
[2022-06-14 05:45] LABS: BASOPHILS % (AUTO) 0.5 % (0.0-2.0); EOSINOPHILS % (AUTO) 1.7 % (1.0-6.0); HEMATOCRIT 32.7 % (41-53); HEMOGLOBIN 11.1 g/dL (13.5-17.5); LYMPHOCYTES # (AUTO) 1.1 K/uL (1.0-4.8); LYMPHOCYTES % (AUTO) 10.9 % (22.0-44.0); MEAN CORPUSCULAR HEMOGLOBIN 31.9 pg (26.0-34.0); MEAN CORPUSCULAR HGB CONC 33.9 G/dL (31.0-37.0); MEAN CORPUSCULAR VOLUME 94 fL (80-100); MONOCYTES # (AUTO) 0.8 K/uL (0.1-1.0); MONOCYTES % (AUTO) 8.6 % (2.0-9.0); NEUTROPHILS # (AUTO) 7.7 K/uL (1.8-7.7); NEUTROPHILS % (AUTO) 78.3 % (40.0-70.0); PLATELET COUNT (AUTO) 228 K/uL (150-450); RED BLOOD CELL COUNT(AUTO) 3.47 MIL/uL (4.50-5.90); RED CELL DISTRIBUTION WIDTH 14.2 % (11.5-14.5)
[2022-06-14] MEDS: FOSPHENYTOIN SODIUM IV SCH ×2 (05:57→06:38)
[2022-06-14] MEDS: SODIUM CHLORIDE IV SCH ×2 (05:57→06:38)
[2022-06-14] MEDS: FentaNYL CIT 1000MCG/0.9% NACL 100 ML IV PRN (06:04)
[2022-06-14] MEDS: MIDAZOLAM HCL 100 MG in SODIUM CHLORIDE 0.9% 180 ML IV PRN (06:06)
[2022-06-14] MEDS: LACOSAMIDE 100 MG in DEXTROSE 5%-WATER 100 ML IV SCH (06:07)
[2022-06-14 06:11] LABS: PHENYTOIN (DILANTIN) 3.7 mcg/mL (10.0-20.0); PHOSPHORUS 4.1 mg/dL (2.5-4.9)
[2022-06-14] MEDS: WATER IV SCH ×2 (06:16→10:13)
[2022-06-14] MEDS: DEXTROSE 5% IV SCH ×2 (06:16→10:13)
[2022-06-14] MEDS: ACYCLOVIR IV SCH ×2 (06:16→10:13)
[2022-06-14 06:52] LABS: GLUCOSE,POINT OF CARE 94 MG/DL (70-110)
[2022-06-14] MEDS: PROPOFOL 1000 MG/ISO-OSM 100 ML IV PRN (07:19)
[2022-06-14 08:00] VITALS: BP 142/35
[2022-06-14] MEDS: VALPROATE SODIUM 1,000 MG in DEXTROSE 5%-WATER 100 ML IV SCH (08:31)
[2022-06-14] MEDS: PANTOPRAZOLE SODIUM 40 MG/VIAL IVP SCH (08:59)
[2022-06-14] MEDS: PHENobarbital SODIUM 65 MG/ML VIAL IVP SCH (08:59)
[2022-06-14] MEDS: DOCUSATE SODIUM 100 MG/10 ML LIQUID UDCUP GT SCH (09:00)
[2022-06-14] MEDS: LevETIRAcetam 2,000 MG in DEXTROSE 5%-WATER 250 ML IV SCH (09:16)
[2022-06-14] MEDS: ETHYL ALCOHOL 62% ANTISEPTIC NASAL SANITIZER 0.6 ML AMPUL NASAL SCH (09:16)
[2022-06-14] MEDS: METOPROLOL TARTRATE 25 MG TABLET PO SCH (09:16)
[2022-06-14 09:31] VITALS: BP 182/87
[2022-06-14] MEDS: LABETALOL HCL 5 MG/ML 20 ML VIAL IVP PRN (09:31)
[2022-06-14 09:36] LABS: ALANINE AMINOTRANSFERASE 181 U/L (12-78); ALBUMIN 2.6 g/dL (3.4-5.0); ALKALINE PHOSPHATASE 77 U/L (46-116); ANION GAP 7 mmol/L (8-16); ASPARTATE AMINOTRANSFERASE 114 U/L (15-37); BILIRUBIN,TOTAL 0.2 mg/dL (0.1-1.0); CALCIUM, TOTAL 8.8 mg/dL (8.8-10.5); CARBON DIOXIDE 24 mmol/L (22-29); CHLORIDE 104 mmol/L (98-107); CREATININE 1.03 mg/dL (0.60-1.30); GLOMERULAR FILTR. RATE CALC > 60 mL/min (>60); GLUCOSE,RANDOM 109 mg/dL (70-110); POTASSIUM 3.8 mmol/L (3.5-5.1); SODIUM SERUM 135 mmol/L (136-145); TOTAL PROTEIN, SERUM 6.7 g/dL (6.4-8.2); UREA NITROGEN, BLOOD 24 mg/dL (7-18)
[2022-06-14] MEDS: DEXTROSE 5%-WATER 1,000 ML IV SCH (10:16)
[2022-06-14] MEDS ORDERED: FOSPHENYTOIN SODIUM IV SCH (13:00)
[2022-06-14] MEDS ORDERED: SODIUM CHLORIDE IV SCH (13:00)
== END 2022-06-14 11:50 | disposition critical access hospital (66) | DRG 720 ==
LOC: EMS 11:48 → ICU 17:21
PROVIDERS: ADMIT Hospitalist; ATTEND Hospitalist
PROC: 4A00X4Z Measurement of Central Nervous Electrical Activity, External Approach (ICD-10-PCS; principal; 2022-06-04)
PROC: 0BH17EZ Insertion of Endotracheal Airway into Trachea, Via Natural or Artificial Opening (ICD-10-PCS; 2022-06-04)
PROC: 5A1955Z Respiratory Ventilation, Greater than 96 Consecutive Hours (ICD-10-PCS; 2022-06-04)
PROC: 009U3ZX Drainage of Spinal Canal, Percutaneous Approach, Diagnostic (ICD-10-PCS; 2022-06-06)
PROC: 02HV33Z Insertion of Infusion Device into Superior Vena Cava, Percutaneous Approach (ICD-10-PCS; 2022-06-08)
PROC: B548ZZA Ultrasonography of Superior Vena Cava, Guidance (ICD-10-PCS; 2022-06-08)
PROC: 4A00X4Z Measurement of Central Nervous Electrical Activity, External Approach (ICD-10-PCS; 2022-06-09)
PROC: 4A00X4Z Measurement of Central Nervous Electrical Activity, External Approach (ICD-10-PCS; 2022-06-10)
DX: A41.9 Sepsis, unspecified organism (principal); J96.00 Acute respiratory failure, unspecified whether with hypoxia or hypercapnia; B00.4 Herpesviral encephalitis; G03.9 Meningitis, unspecified; J69.0 Pneumonitis due to inhalation of food and vomit; E88.09 Other disorders of plasma-protein metabolism, not elsewhere classified; M62.82 Rhabdomyolysis; G40.901 Epilepsy, unspecified, not intractable, with status epilepticus; E87.29 Other acidosis; N17.9 Acute kidney failure, unspecified; N18.9 Chronic kidney disease, unspecified; E87.6 Hypokalemia; A60.02 Herpesviral infection of other male genital organs; D64.9 Anemia, unspecified; I12.9 Hypertensive chronic kidney disease with stage 1 through stage 4 chronic kidney disease, or unspecified chronic kidney disease; J98.11 Atelectasis; Z79.899 Other long term (current) drug therapy
CPT/HCPCS: 36245; 36569; 51702; 70450; 70551; 71045; 71250; 72125; 76770; 76937; 80048; 80053; 80164; 80184; 80185; 80307; 81001; 82009; 82010; 82140; 82550; 82570; 82805; 82945; 82962; 83605; 83735; 84100; 84132; 84145; 84156; 84157; 84300; 84484; 84540; 85025; 85610; 85730; 87040; 87070; 87075; 87081; 87205; 87210; 87529; 89051; 90715; 93005; 94002; 94003; 95816; 99285; C9113; C9254; G0378; G0480; G0481; J0133; J0696; J0712; J1200; J1644; J2060; J2250; J2270; J2543; J2560; J2704; J3370; J3475; J3480; J3490; J7030; J7040; J7050; J7060; Q2009; Q9967; 36415-L1; 36415-TC